=== PATIENT | female | born 1955 | race Two or more races ===

== ENCOUNTER 2021-08-01 11:10 | Emergency (ER) | payer MEDICARE, OTHER ==
[~2021-08-01] VITALS: Ht 170.2 cm; Wt 84.8 kg
[2021-08-01] MEDS ORDERED: LORAZEPAM INJ 2 MG/ML VIAL ONE (11:19)
--- NOTE | 2021-08-01 11:26 | NUR ---
PT BIB [facility] FOR SEIZURE WHILE AT A MEDICAL CLINIC. [id number], PT NOT RELIABLE HISTORIAN, DOES NOT ANSWER QUESTIONS, NONAMBULATORY, R BELOW KNEE AMPUTATION, BS 117. VS STABLE.
[2021-08-01] MEDS ORDERED: LORAZEPAM INJ 2 MG/ML VIAL IM ONE (11:30)
[2021-08-01] MEDS ORDERED: IV NS 0.9% 1,000 ML BAG IV ONE (11:30)
--- NOTE | 2021-08-01 11:40 | NUR ---
PT IV LINE ESTABLISHED BLOOD DRAWN AND SENT TO LAB.
[2021-08-01 11:45] LABS: BASOPHILS % (AUTO) 0.7 % (0.0-2.0); EOSINOPHILS % (AUTO) 2.4 % (0.0-6.0); HEMATOCRIT 44 % (33-45); HEMOGLOBIN 14.2 g/dL (11.5-14.8); LYMPHOCYTES # (AUTO) 2.6 K/uL (0.8-4.8); LYMPHOCYTES % (AUTO) 37.6 % (20.0-44.0); MEAN CORPUSCULAR HGB CONC 32 g/dl (31.0-36.0); MEAN CORPUSCULAR VOLUME 84 fL (82-100); MONOCYTES # (AUTO) 0.5 K/uL (0.1-1.30); MONOCYTES % (AUTO) 6.9 % (2.0-12.0); NEUTROPHILS # (AUTO) 3.6 K/uL (1.8-8.9); NEUTROPHILS % (AUTO) 52.4 % (43.0-81.0); PLATELET COUNT (AUTO) 288 K/uL (150-450); WHITE BLOOD COUNT (AUTO) 6.8 K/uL (4.3-11.0)
--- NOTE | 2021-08-01 11:51 | NUR ---
IV SITE INFILTRATED. HOUSING MANAGING CONSULTANT CALLED TO ESTABLISH MIDLINE.
--- NOTE | 2021-08-01 11:58 | NUR ---
RADIOLOGY AT BEDSIDE
[2021-08-01 12:05] LABS: CALCIUM, SERUM 9.2 mg/dL (8.5-10.1); CARBON DIOXIDE 27 mmol/L (21-32); CHLORIDE 104 mmol/L (98-107); CREATININE 1.3 mg/dL (0.6-1.3); GLUCOSE 97 mg/dL (74-106); POTASSIUM 4.3 mmol/L (3.5-5.1); SODIUM SERUM 141 mmol/L (136-145); UREA NITROGEN, BLOOD 22 mg/dL (7-18)
[2021-08-01 12:11] LABS: ALANINE AMINOTRANSFERASE 23 U/L (12-78); ALBUMIN 3.8 g/dL (3.4-5.0); ALCOHOL, BLOOD < 3 mg/dL (0-0); ALKALINE PHOSPHATASE 75 U/L (46-116); ASPARTATE AMINOTRANSFERASE 17 U/L (15-37); BILIRUBIN,DIRECT 0.1 mg/dL (0.0-0.2); BILIRUBIN,TOTAL 0.2 mg/dL (0.2-1.0); TOTAL PROTEIN, SERUM 7.7 g/dL (6.4-8.2)
[2021-08-01] MEDS ORDERED: CYCL10TA9 PO (12:18)
[2021-08-01] MEDS ORDERED: PANT20TA17 PO (12:18)
[2021-08-01] MEDS ORDERED: HYDR12.55 PO (12:18)
[2021-08-01] MEDS ORDERED: IBUP-1957 PO (12:18)
[2021-08-01] MEDS ORDERED: TRAM50TA2 PO (12:18)
[2021-08-01] MEDS ORDERED: OXYB5TAB16 PO (12:18)
[2021-08-01] MEDS ORDERED: FLUT1BLS INH (12:18)
[2021-08-01] MEDS ORDERED: CARI350T27 PO (12:18)
[2021-08-01] MEDS ORDERED: ALBU18HF2 INH (12:18)
[2021-08-01] MEDS ORDERED: LEVETIRACETAM (500MG) 1,000 MG in IV NS 0.9% 100 ML IV SCH (12:30)
--- NOTE | 2021-08-01 12:30 | NUR ---
PT TAKEN TO CT
--- NOTE | 2021-08-01 12:50 | NUR ---
MIDLINE BEING PLACED BY ADJUNCT PSYCHOLOGY INSTRUCTOR AT BEDSIDE
--- NOTE | 2021-08-01 13:17 | NUR ---
COVID SAMPLE PBTAINED AND SENT TO LAB
--- NOTE | 2021-08-01 14:00 | NUR ---
MOVE SHEET SUBMITTED.
--- NOTE | 2021-08-01 14:19 | NUR ---
PT SLEEPING COMFORTABLY IN BED
--- NOTE | 2021-08-01 14:38 | NUR ---
UNABLE TO FLUSH MID LINE ACCESS.
--- NOTE | 2021-08-01 14:47 | NUR ---
CALLED FOR BED.
--- NOTE | 2021-08-01 15:15 | NUR ---
MIDLINE RN AT BEDSIDE
--- NOTE | 2021-08-01 15:20 | NUR ---
UNABLE TO OBTAIN URINE SAMPLE AT THIS TIME. WILL TRY AGAIN.
--- NOTE | 2021-08-01 15:40 | NUR ---
PT REFUSES TO GIVE URINE SAMPLE
--- NOTE | 2021-08-01 15:47 | NUR ---
PT ACCEPTED TO [facility] UNDER DR. YANG PLEASE CALL TINO LADD FOR REPORT @ [phone] ROOM [id number] AMBULN PICKUP TIME OF 1800
[2021-08-01 17:18] VITALS: BP 163/107
--- NOTE | 2021-08-01 18:25 | NUR ---
REPORT GIVEN TO RN AT [facility]
--- NOTE | 2021-08-01 18:40 | NUR ---
TRANSPORTATION ARRIVED FOR PT
== END 2021-08-01 19:08 | disposition short-term general hospital (02) ==
LOC: ER 11:12
DX: G40.909 Epilepsy, unspecified, not intractable, without status epilepticus (principal); Z20.822 Contact with and (suspected) exposure to COVID-19; G93.89 Other specified disorders of brain; Z86.73 Personal history of transient ischemic attack (TIA), and cerebral infarction without residual deficits; I11.9 Hypertensive heart disease without heart failure; E87.2 Acidosis; E11.9 Type 2 diabetes mellitus without complications; Z89.511 Acquired absence of right leg below knee
CPT/HCPCS: 36415; 70450; 71045; 80048; 80076; 80320; 83605 ×2; 85025; 87040 ×2; 87426; 93005; 96361; 96365; 96372; 99291; J1953; J2060; J7030 ×2; 36410; C9803; G0480